=== PATIENT | female | born 1990 | race Caucasian/White ===

== ENCOUNTER 2018-01-04 03:03 | Emergency (ER) | payer SELFPAY ==
[~2018-01-04] VITALS: Ht 165.1 cm; Wt 59.0 kg
[~2018-01-04 03:03] MED LIST: AMITRIPTYLINE H25 MG PO; BACDS PO; CIPROFLOXACIN500 MG PO; CLEOCIN HCL150 MG PO; CLINDAMYCIN HC300 MG PO; COL100 PO; COLACE100 MG PO; DOXYCYCLINE MO100 MG PO; ELA25 PO; FLAGYL500 MG PO; HCTZ/LISINOPRIL1 TA1 PO; LAC PO; LOESTRIN 21 1.51 TAB PO; MIRUD PO; MOT800 PO; MYL80 CH; NOR10T PO; OXYCODONE HYDRO1 TA1 PO; PER5 PO; PERCOCET1 TA2 PO; VIT; VIT PO; ZES10 PO
[2018-01-04 03:06] VITALS: Ht 165.1 cm; Wt 59.0 kg
[2018-01-04 04:26] LABS: AMPHETAMINE QUAL UR POSITIVE (See below)
[2018-01-04 04:47] VITALS: BP 130/81
== END 2018-01-04 04:47 | disposition home or self-care (01) ==
LOC: ED 03:03
PROVIDERS: Emergency Medicine
DX: R10.2 Pelvic and perineal pain (principal); R10.30 Lower abdominal pain, unspecified; I10 Essential (primary) hypertension; Z98.890 Other specified postprocedural states; Z87.42 Personal history of other diseases of the female genital tract
CPT/HCPCS: J1885; J2270

== ENCOUNTER 2018-06-05 19:08 | Emergency (ER) | payer SELFPAY ==
[~2018-06-05] VITALS: Ht 165.1 cm; Wt 72.6 kg
[2018-06-05 19:09] VITALS: Ht 165.1 cm; Wt 72.6 kg
[2018-06-05 19:42] LABS: BASOPHIL % 0.3 % (0-2); PLATELET COUNT 187 x10^3mcL (130-400); RED CELL DISTRIBUTION WIDTH 16.5 % (11.5-14.5)
[2018-06-05 19:55] LABS: CALCIUM 8.4 mg/dL (8.5-10.1); CARBON DIOXIDE 24.5 mmol/L (21-32); CHLORIDE SERUM 106 mmol/L (98-107); CREATININE SERUM 0.7 mg/dL (0.6-1.0); GFR1 > 60 mL/min; GLUCOSE SERUM 115 mg/dL (74-106); POTASSIUM SERUM 3.9 mmol/L (3.5-5.1); SODIUM SERUM 140 mmol/L (136-145)
[2018-06-05 20:03] LABS: ALBUMIN 3.6 g/dL (3.4-5.0); ALKALINE PHOSPHATASE 78 U/L (46-116); ALT/SGPT 18 U/L (14-59); AST/SGOT 17 U/L (15-37); BILIRUBIN TOTAL 0.1 mg/dL (0.20-1.00); TOTAL PROTEIN, SERUM 6.9 g/dL (6.4-8.2)
[2018-06-05 23:10] VITALS: BP 128/80
== END 2018-06-05 23:10 | disposition home or self-care (01) ==
LOC: ED 19:08
PROVIDERS: Emergency Medicine
DX: N94.6 Dysmenorrhea, unspecified (principal); N83.209 Unspecified ovarian cyst, unspecified side; I10 Essential (primary) hypertension; Z98.890 Other specified postprocedural states
CPT/HCPCS: J1885; J2270; J2405; J7030

== ENCOUNTER 2018-08-24 18:25 | Emergency (ER) | payer SELFPAY ==
[~2018-08-24] VITALS: Ht 165.1 cm; Wt 72.6 kg
[2018-08-24 18:29] VITALS: Ht 165.1 cm; Wt 72.6 kg
[2018-08-24 18:53] LABS: BASOPHIL % 0.2 % (0-2); PLATELET COUNT 247 x10^3mcL (130-400)
[2018-08-24 18:56] LABS: RED CELL DISTRIBUTION WIDTH 15.6 % (11.5-14.5)
[2018-08-24 19:06] LABS: CALCIUM 8.8 mg/dL (8.5-10.1); CARBON DIOXIDE 25.6 mmol/L (21-32); CHLORIDE SERUM 108 mmol/L (98-107); CREATININE SERUM 0.7 mg/dL (0.6-1.0); GFR1 > 60 mL/min; GLUCOSE SERUM 98 mg/dL (74-106); POTASSIUM SERUM 3.7 mmol/L (3.5-5.1); SODIUM SERUM 142 mmol/L (136-145)
[2018-08-24 19:10] LABS: ALKALINE PHOSPHATASE 66 U/L (46-116); ALT/SGPT 15 U/L (14-59); AST/SGOT 10 U/L (15-37); BILIRUBIN TOTAL 0.23 mg/dL (0.20-1.00); TOTAL PROTEIN, SERUM 8.1 g/dL (6.4-8.2)
[2018-08-24 23:19] VITALS: BP 132/84
== END 2018-08-24 23:19 | disposition home or self-care (01) ==
LOC: ED 18:25
DX: N94.6 Dysmenorrhea, unspecified (principal); N83.292 Other ovarian cyst, left side; N39.0 Urinary tract infection, site not specified; I10 Essential (primary) hypertension; Z98.890 Other specified postprocedural states
CPT/HCPCS: J1885; J2270; J2405; J3010; J7030

== ENCOUNTER 2018-09-19 05:28 | Emergency (ER) | payer MEDICAID ==
[~2018-09-19] VITALS: Ht 165.1 cm; Wt 65.8 kg
[2018-09-19 05:41] VITALS: Ht 165.1 cm; Wt 65.8 kg
[2018-09-19 06:39] LABS: CALCIUM 9.4 mg/dL (8.5-10.1); CARBON DIOXIDE 23.3 mmol/L (21-32); CHLORIDE SERUM 109 mmol/L (98-107); CREATININE SERUM 0.7 mg/dL (0.6-1.0); GFR1 > 60 mL/min; GLUCOSE SERUM 93 mg/dL (74-106); POTASSIUM SERUM 3.7 mmol/L (3.5-5.1); SODIUM SERUM 145 mmol/L (136-145)
[2018-09-19 06:43] LABS: ALKALINE PHOSPHATASE 62 U/L (46-116); ALT/SGPT 13 U/L (14-59); AST/SGOT 12 U/L (15-37); BILIRUBIN TOTAL 0.44 mg/dL (0.20-1.00); LIPASE 68 IU/L (73-393); TOTAL PROTEIN, SERUM 7.6 g/dL (6.4-8.2)
[2018-09-19 07:02] LABS: BASOPHIL % 0.1 % (0-2); PLATELET COUNT 205 x10^3mcL (130-400)
[2018-09-19 07:13] LABS: RED CELL DISTRIBUTION WIDTH 16.7 % (11.5-14.5)
[2018-09-19 10:14] VITALS: BP 128/76
== END 2018-09-19 10:44 | disposition home or self-care (01) ==
LOC: ED 05:28
PROVIDERS: Emergency Medicine
DX: N94.6 Dysmenorrhea, unspecified (principal); N30.00 Acute cystitis without hematuria; I10 Essential (primary) hypertension; Z85.41 Personal history of malignant neoplasm of cervix uteri; Z98.890 Other specified postprocedural states
CPT/HCPCS: J1630; J1885; J7030

== ENCOUNTER 2019-05-21 14:21 | Emergency (ER) | payer OTHER ==
[~2019-05-21] VITALS: Ht 165.1 cm; Wt 65.8 kg
[2019-05-21 14:41] VITALS: Ht 165.1 cm; Wt 65.8 kg
[2019-05-21 15:24] LABS: BASOPHIL % 0.1 % (0-2); PLATELET COUNT 199 x10^3mcL (130-400)
[2019-05-21 15:25] LABS: RED CELL DISTRIBUTION WIDTH 17.1 % (11.5-14.5)
[2019-05-21 15:50] LABS: CALCIUM 8.6 mg/dL (8.5-10.1); CARBON DIOXIDE 25.7 mmol/L (21-32); CHLORIDE SERUM 105 mmol/L (98-107); CREATININE SERUM 0.6 mg/dL (0.6-1.0); GFR1 > 60 mL/min; GLUCOSE SERUM 109 mg/dL (74-106); POTASSIUM SERUM 4.1 mmol/L (3.5-5.1); SODIUM SERUM 140 mmol/L (136-145)
[2019-05-21 15:55] LABS: ALBUMIN 3.4 g/dL (3.4-5.0); ALKALINE PHOSPHATASE 84 U/L (46-116); ALT/SGPT 20 U/L (14-59); AST/SGOT 13 U/L (15-37); BILIRUBIN TOTAL 0.4 mg/dL (0.20-1.00); LIPASE 46 IU/L (73-393); TOTAL PROTEIN, SERUM 7.6 g/dL (6.4-8.2)
[2019-05-21 19:03] LABS: AMPHETAMINE QUAL UR POSITIVE (See below)
[2019-05-21 19:24] VITALS: BP 130/87
== END 2019-05-21 23:26 | disposition left against medical advice (07) ==
LOC: ED 14:21
PROVIDERS: Emergency Medicine
DX: A59.01 Trichomonal vulvovaginitis (principal); R10.2 Pelvic and perineal pain; N83.202 Unspecified ovarian cyst, left side; I10 Essential (primary) hypertension; Z98.890 Other specified postprocedural states
CPT/HCPCS: 36415; 87491; 87591; 87804; J0696; J1885; J2001; J3010; Q0162

== ENCOUNTER 2019-07-30 01:53 | Emergency (ER) | payer OTHER ==
[~2019-07-30] VITALS: Ht 165.1 cm; Wt 68.0 kg
[2019-07-30 01:56] VITALS: Ht 165.1 cm; Wt 68.0 kg
[2019-07-30 04:34] LABS: CALCIUM 8.7 mg/dL (8.5-10.1); CARBON DIOXIDE 27.5 mmol/L (21-32); CHLORIDE SERUM 104 mmol/L (98-107); CREATININE SERUM 0.7 mg/dL (0.6-1.0); GFR1 > 60 mL/min; GLUCOSE SERUM 121 mg/dL (74-106); SODIUM SERUM 141 mmol/L (136-145)
[2019-07-30 04:36] LABS: BASOPHIL % 0 % (0-2); PLATELET COUNT 248 x10^3mcL (130-400); RED CELL DISTRIBUTION WIDTH 16.5 % (11.5-14.5)
[2019-07-30 04:38] LABS: ALKALINE PHOSPHATASE 104 U/L (46-116); ALT/SGPT 23 U/L (14-59); AMYLASE 61 U/L (25-115); AST/SGOT 18 U/L (15-37); BILIRUBIN TOTAL 0.2 mg/dL (0.20-1.00); LIPASE 62 IU/L (73-393); TOTAL PROTEIN, SERUM 7.2 g/dL (6.4-8.2)
[2019-07-30 04:39] LABS: ALBUMIN 3.3 g/dL (3.4-5.0)
[2019-07-30 05:11] VITALS: BP 133/86
== END 2019-07-30 05:11 | disposition left against medical advice (07) ==
LOC: ED 01:53
PROVIDERS: Emergency Medicine
DX: R10.2 Pelvic and perineal pain (principal); R10.9 Unspecified abdominal pain; I10 Essential (primary) hypertension; E28.2 Polycystic ovarian syndrome; Z98.890 Other specified postprocedural states; Z85.41 Personal history of malignant neoplasm of cervix uteri
CPT/HCPCS: 36415; 87491; 87591; J2270